=== PATIENT | male | born 1955 | race Caucasian/White ===

== ENCOUNTER → 2019-06-11 | Outpatient (CLI) | payer BC ==
[~2019-06-11] MED LIST: ASPIRIN 81M81 MG/TA2 PO; CEPHALEXIN500 M1 PO; EXFORGE 10 MG-31 TAB PO; HCTZ 25MG TAB25 MG PO
== END ==
LOC: COL.RAD 09:51
DX: D75.1 Secondary polycythemia (principal)
CPT/HCPCS: Q9967

== ENCOUNTER → 2024-06-04 | Outpatient (CLI) | payer MEDICARE | LOC: COL.RAD 11:19 | DX: I82.401 Acute embolism and thrombosis of unspecified deep veins of right lower extremity (principal) ==